=== PATIENT | female | born 1975 | race Caucasian/White ===

== ENCOUNTER 2019-01-15 10:58 | Inpatient (IN) | payer MEDICAID ==
[~2019-01-15] VITALS: Ht 147.3 cm; Wt 69.1 kg
[~2019-01-15 10:58] MED LIST: PNV91TAB6 PO
[2019-02-05 11:11] VITALS: Ht 147.3 cm; Wt 69.1 kg
[2019-02-05] MEDS ORDERED: LACTATED RINGER'S 1,000 ML IV SCH (11:12)
[2019-02-05] MEDS ORDERED: IBUPROFEN 600 MG TAB PO PRN (11:30)
[2019-02-05] MEDS ORDERED: LIDOCAINE 1% (MPF) 30 ML INJ INJ PRN (11:30)
[2019-02-05] MEDS ORDERED: MISOPROSTOL 200 MCG TAB PR PRN ×2 (11:30→12:00)
[2019-02-05] MEDS ORDERED: METHYLERGONOVINE 0.2 MG INJ IM PRN ×2 (11:30→12:00)
[2019-02-05] MEDS ORDERED: OXYTOCIN 30 UNITS/LR 500 ML IV SCH ×2 (11:30)
[2019-02-05] MEDS ORDERED: OXYTOCIN 30 UNITS/LR 500 ML IV PRN ×2 (11:30→12:00)
[2019-02-05] MEDS ORDERED: CARBOPROST 250 MCG INJ IM PRN ×2 (11:30→12:00)
[2019-02-05] MEDS: OXYTOCIN 30 UNITS/LR 500 ML IV SCH ×2 (11:39→12:58)
--- NOTE | 2019-02-05 11:39 | LDN ---
Date/Time of Note Date/Time of Note DATE: 02/05/19 TIME: 11:34 Delivery Summary /BOA of a viable baby boy shortly after arriving on L and D and weighing 3555 grams or 7# 12 oz, 20.5 long, and with Apgars of 8/9 with thick meconium at delivery. Weeks of Gestation 38w 4d Placenta Delivered: Spontaneously Meconium: Thick Episiotomy: No Perineal laceration: 1 Laceration repair: Very small perineal laceration stitched with 3-0 chromic for hemostasis Anesthesia type: None Estimated blood loss: 150 All needle counts correct: Yes Any foreign bodies felt in the: No (vagina) Infant Delivery Information Sex Infant Sex: male Apgars 1 Minute: 8 5 Minute: 9 Suctioning Nose & mouth suctioned at [place]: Yes Delee suction performed: No Umbilical Cord Umbilical cord with: 3 Vessels Cord presentations: no nuchal cord Cord Blood was obtained: Yes Mother & Baby Disposition Disposition Mom & Baby to Maternity; Good: Yes Baby to NICU: No GEORGINA WADDELL MD Feb 05, 2019 11:39
[2019-02-05] MEDS: LACTATED RINGER'S 1,000 ML IV* SCH ×2 (11:41→19:31)
--- NOTE | 2019-02-05 11:45 | HP ---
Date/Time of Note Date/Time of Note DATE: 02/05/19 TIME: 11:39 OB - History Hx of Present Free Text/Dictation 43 y.o. with an EDC, per pt, of / and an IUP at 38w 4d came in active labor and was completely effaced and dilated with a bulging bag on admit and delivered soon after. She had care at [facility] which transfers care to Dr Romero at 36 weeks. She has a copy of her alla rds at home. Chief Complaint: Labor Estimated Due Date: Feb 15, 2019 : 3 Para: 2 Care: Good Care Ultrasounds: Normal mid trimester US Obstetrical Complications: None Medical Complications: None Other Concerns: No prior surgeries. Past Family/Social History * Past Medical, Surgical, Family and Obstetric Histories reviewed with pt as her prenatals were not available. Blood Type: Unknown Rubella: unknown RPR/VDRL: Unknown GBS Status: Unknown HBsAG: Unknown OB Admission Exam Vital Signs Vital Signs Afebrile, normotensive. Physical Exam HEENT: WNL Heart: Rhythm Normal Lungs: Clear Abdomen: WNL Extremities: Normal Reflexes: Normal Cervical Dilatation: 10cm Effacement: 100% Station: +1 Membranes: Intact Amniotic Fluid: Thick Meconium Heart Rate: 140's Accelerations: Accelerations Present Decelerations: No Decelerations Varibility: Moderate Contractions on Admission: < 5 Minutes Apart Intensity: Firm OB Assessment/Plan Reason for admission: active labor Other Assessment: Unknown GBS Plan: Expectant Management GEORGINA WADDELL MD Feb 05, 2019 11:45
[2019-02-05 11:50] VITALS: BP 126/74; PULSE 76; RESP 18
[2019-02-05] MEDS ORDERED: HYDROCODONE/APAP (5/325) TAB PO PRN (12:00)
[2019-02-05 13:20] VITALS: BP 112/72; PULSE 78; RESP 19
[2019-02-05 14:20] VITALS: BP 110/62; PULSE 72; RESP 18
[2019-02-05] MEDS: LANOLIN HPA 1 PKT TOP PRN (14:36)
[2019-02-05] MEDS: IBUPROFEN 600 MG TAB PO SCH ×2 (14:36→18:00)
[2019-02-05 15:33] VITALS: BP 122/72; PULSE 70; RESP 19
[2019-02-05 21:00] VITALS: BP 108/56; PULSE 69; RESP 17
[2019-02-06] MEDS: IBUPROFEN 600 MG TAB PO SCH ×4 (00:12→18:21)
[2019-02-06] MEDS: LACTATED RINGER'S 1,000 ML IV* SCH (03:31)
[2019-02-06 04:00] VITALS: BP 98/60; PULSE 62; RESP 18
[2019-02-06 08:00] VITALS: BP 114/58; PULSE 67; RESP 18
[2019-02-06] MEDS: LANOLIN HPA 1 PKT TOP PRN (10:05)
--- NOTE | 2019-02-06 13:13 | DS ---
Date/Time of Note Date/Time of Note DATE: 02/06/19 TIME: 13:12 Obstetrical Discharge Record Final Diagnosis Final Diagnosis: Term delivered Vaginal Delivery Obstetrical Delivery: Spontaneous Complications Augmentation: No Induction: No Rupture of Membranes: No Condition on Discharge Physical Assessment Voiding: Yes Bowel Movement: Yes Breast: Soft, non-tender, Filling Fundus: Firm Abdomen and Incision: soft, not tender Calf Tenderness: No Patient Condition: Good BENITA HENDRICKSON MD Feb 06, 2019 13:13
[2019-02-06 15:50] VITALS: BP 111/66; PULSE 62; RESP 18
[2019-02-06 20:45] VITALS: BP 114/66; PULSE 66; RESP 17
[2019-02-07] MEDS: IBUPROFEN 600 MG TAB PO SCH ×3 (00:11→12:18)
[2019-02-07 04:00] VITALS: BP 113/59; PULSE 64; RESP 18
[2019-02-07 08:00] VITALS: BP 88/68; RESP 16
[2019-02-07] MEDS ORDERED: DIPHTH/TET/ACEL PERTUSS (ADULT) 0.5 ML VIAL IM* ONE (09:00)
--- NOTE | 2019-02-08 15:27 | DELSUM ---
Delivery Summary A-C Datetime Report Generated by CPN: 02/08/2019 15:27 DELIVERY PERSONNEL Art Preparator: Cubil, Windy MATERNAL INFORMATION Delivery Anesthesia: None Medications in Delivery: LR 500ML PITOCIN 30 UNITS Delivery QBL (ml): 100 Placenta Cultured: No Maternal Complications: Other LABOR SUMMARY EDC: 02/15/2019 00:00 No. Babies in Womb: 1 Attempted: No Labor Anesthesia: None LABOR INFORMATION Reason for Induction: Not Applicable Onset of Labor: 02/05/2019 07:00 Complete Dilatation: 02/05/2019 11:00 Group B Beta Strep: Not Done Antibiotics # of Doses: 0 Steroids Given: None Reason Steroids Not Administered: Not Applicable MEMBRANES Membranes Rupture Method: Spontaneous Rupture of Membranes: 02/05/2019 08:00 Length of Rupture (hr): 3.07 Amniotic Fluid Color: Heavy Meconium Amniotic Fluid Amount: Large Amniotic Fluid Odor: Normal STAGES OF LABOR Stage 1 hr: 3 Stage 1 min: 0 Stage 2 hr: 0 Stage 2 min: 4 Stage 3 hr: 0 Stage 3 min: 5 Total Time in Labor hr: 3 Total Time in Labor min: 9 VAGINAL DELIVERY Episiotomy: None Laceration Extension: First Degree Laceration Type: Perineal Laceration Repair: Yes Initial Vag Sponge Count: 10 Final Vag Sponge Count: 10 Initial Vag Sharps Count: 2 Final Vag Sharps Count: 1 Sponge Count Correct: Yes; Vaginal Sweep Performed Sharps Count Correct: Yes BABY A INFORMATION Delivery Date/Time: 02/05/2019 11:04 Method of Delivery: Vaginal Born in Route : No : N/A Forceps: N/A Vacuum Extraction: N/A Shoulder Dystocia : N/A SHOULDER DYSTOCIA BABY A Infant Delivery Date/Time: 02/05/2019 11:04 PRESENTATION/POSITION BABY A Presentation: Cephalic Cephalic Presentation: Vertex Vertex Position: Left Occipital Anterior Breech Presentation: N/A PLACENTA INFORMATION BABY A Placenta Delivery Time : 02/05/2019 11:09 Placenta Method of Delivery: Spontaneous Placenta Status: Delivered SCORES BABY A Heart Rate 1 min: >100 bpm Resp Effort 1 min: Good Cry Reflex Irritability 1 min: Cough/Sneeze/Pulls Away Muscle Tone 1 min: Active Motion Color 1 min: Blue/Pale Resuscitation Effort 1 min: Tactile Stimulation SCORE 1 MIN: 8 Heart Rate 5 min: >100 bpm Resp Effort 5 min: Good Cry Reflex Irritability 5 min: Cough/Sneeze/Pulls Away Muscle Tone 5 min: Active Motion Color 5 min: Body [place], Extremit Blue Resuscitation Effort 5 min: Tactile Stimulation SCORE 5 MIN: 9 INFORMATION BABY A Gestational Age at Delivery: 38.4 Gestational Status: Early Term- 37- 38.6 Weeks Outcome : Liveborn, with signs of life Infant Condition : Stable Sex: Male IDENTIFICATION/MEDS BABY A ID Band Number: [id number] ID Band Location: Right Leg; Left Leg Sensor Applied: Yes Sensor Number: [id number] Sensor Location : Cord Clamp Vitamin K Given : Not Given Erythromycin Given: Not Given WEIGHT/LENGTH BABY A Birthweight (gm): 3555 Infant Weight (lb): 7 Infant Weight (oz): 13 Length (in): 20.50 Length (cm): 52.07 CORD INFORMATION BABY A No. Cord Vessels: 3 Nuchal Cord : N/A Nuchal Cord- Other: 0 True Knot: 0 Cord Blood Taken: Yes Infant Suction: Mouth; Nose ASSESSMENT BABY A Complications: Meconium Physical Findings at Delivery: Within Normal Limits Respirations: Appears Normal Maintainability Engineer/ALS Called : No Infant Care By: Sanju COLE RNC Transferred To: Remains with Mother
== END 2019-02-07 14:55 | disposition home or self-care (01) | DRG 807 ==
LOC: EDSTATUS 10:58 → L-D 02-05 11:00 → PP1 02-05 13:12
PROVIDERS: ADMIT Specialist; ATTEND Specialist
PROC: 10E0XZZ Delivery of Products of Conception, External Approach (ICD-10-PCS; principal; 2019-02-05)
PROC: 0HQ9XZZ Repair Perineum Skin, External Approach (ICD-10-PCS; 2019-02-05)
DX: O77.0 Labor and delivery complicated by meconium in amniotic fluid (principal); Z37.0 Single live birth; O70.0 First degree perineal laceration during delivery; Z3A.38 38 weeks gestation of pregnancy
CPT/HCPCS: 80307; 85025; 85610; 85730; 86592; 86762; 86850; 86900; 86901; 87340; 99464; J2590; J7120